=== PATIENT | male | born 1975 | race Caucasian/White ===

== ENCOUNTER → 2016-10-19 16:34 | Outpatient (CLI) | payer OTHER ==
[2016-10-19 16:56] LABS: BASOPHILS 0.5 % (0-2); HEMATOCRIT 47.8 % (42.0-54.0); LYMPHOCYTES 35.3 % (15-50); MCH 33.5 pg (26.0-34.0); MCHC 35.6 g/dL (31.0-37.0); MCV 94.3 fL (80.0-100.0); MEAN PLATELET VOLUME 10.3 fL (7.4-10.4); MONOCYTES 5.9 % (2-11); NEUTROPHILS 54.3 % (40-80); PLATELET COUNT 139 10x3/uL (130-400); RBC 5.07 10x6/uL (4.20-6.10); RDW 12.4 % (11.5-14.5); WBC 5.8 10x3/uL (4.8-10.8)
[2016-10-19 17:33] LABS: ANION GAP 14.2 mmol/L (8-16); CALCIUM 9.3 mg/dL (8.5-10.1); CARBON DIOXIDE 26.4 mmol/L (21.0-32.0); CREATININE - SERUM 1.5 mg/dL (0.6-1.3); POTASSIUM - SERUM 3.6 mmol/L (3.5-5.1)
[2016-10-27 07:11] VITALS: BMI 30.8
== END | disposition home or self-care (01) ==
LOC: D.LAB 16:34
PROVIDERS: Urology
DX: R31.9 Hematuria, unspecified (principal)

== ENCOUNTER 2016-10-27 06:38 | Day surgery (SDC) | payer OTHER ==
[~2016-10-27] VITALS: Ht 182.9 cm; Wt 103.0 kg
[2016-10-27 07:11] VITALS: Ht 182.9 cm; Wt 103.0 kg
== END 2016-10-27 09:05 | disposition home or self-care (01) ==
LOC: D.OPS 06:38 → D.PAN 09:15
DX: R31.0 Gross hematuria (principal); Z01.810 Encounter for preprocedural cardiovascular examination; Z01.811 Encounter for preprocedural respiratory examination; Z01.812 Encounter for preprocedural laboratory examination; Z53.9 Procedure and treatment not carried out, unspecified reason